=== PATIENT | male | born 1960 | race Caucasian/White ===

== ENCOUNTER 2017-10-10 11:21 | Day surgery (SDC) ==
[2017-10-10] MEDS: BETADINE OPTH PREP OP PRN ×2 (14:29→14:48)
[2017-10-10] MEDS: TETRACAINE 0.5% UNIT-DOSE OP PRN ×2 (14:29→14:48)
[2017-10-10] MEDS: CYCLOGYL 2% OPTH OP PRN ×3 (14:30→14:40)
[2017-10-10] MEDS ORDERED: VERSED ONE (14:45)
[2017-10-10] MEDS ORDERED: SUBLIMAZE ONE (14:45)
[2017-10-10] MEDS ORDERED: ZOFRAN 4 MG/2 ML IVP ONE (14:46)
[2017-10-10] MEDS ORDERED: LIDOCAINE 1%/PHENYLEPHRINE 1.5% BSS (SURGERY) INTRAOCULA ONE (14:46)
[2017-10-10] MEDS ORDERED: DEX-MOXI-KETOR OPTH INJ 1/0.5/0.4 MG/ML IO ONE (14:46)
[2017-10-10] MEDS ORDERED: BRIMONIDINE TARTRATE 0.2% OPTH SOL OP PRN (14:46)
[2017-10-10] MEDS ORDERED: LIDOCAINE 1% 20 ML MDV ID STA (14:46)
[2017-10-10] MEDS ORDERED: BSS WITH EPINEPHRINE OP ONE (14:46)
[2017-10-10 17:42] VITALS: TEMP 97.5
[2017-10-12 13:35] VITALS: BP 125/67
== END 2017-10-10 15:45 | disposition home or self-care (01) ==
LOC: SURG 11:21
PROVIDERS: ATTEND Ophthalmology
DX: H26.9 Unspecified cataract (principal)